=== PATIENT | male | born 1985 | race African-American/Black ===

== ENCOUNTER 2019-02-05 20:52 | Emergency (ER) | payer SELFPAY ==
--- NOTE | 2019-02-05 21:07 | EDM.PDOC ---
ED HPI GENERAL MEDICAL PROBLEM - General Chief Complaint: General Stated Complaint: MEDICAL CLEARANCE Time Seen by Provider: 02/05/19 20:55 Source of Information: Reports: Patient, Police - History of Present Illness INITIAL COMMENTS - FREE TEXT/NARRATIVE: 33 YO WM presents to ER by police due to alcohol intoxication and request for medical clearance. Pt reports alcohol consumption tonight but denies any trauma or past medical conditions. Pt is alert and oriented and without complaints. Police brought patient due to policy for medical clearance before transferring to [facility]. Pt without any signs of trauma. Pt was found behind the wheel of his automobile sleeping but arousable. Pt GCS-15 with no ataxia and mild slurred speech. Pt denies chest pain, headache, no shortness of breath, no nausea/ vomiting. Onset: Today Location: Reports: Generalized Improves with: Reports: None Worsens with: Reports: None Associated Symptoms: Reports: No Other Symptoms ED ROS GENERAL - Review of Systems Review Of Systems: See Below Constitutional: Reports: No Symptoms HEENT: Reports: No Symptoms Respiratory: Reports: No Symptoms Cardiovascular: Reports: No Symptoms Endocrine: Reports: No Symptoms GI/Abdominal: Reports: No Symptoms : Reports: No Symptoms Musculoskeletal: Reports: No Symptoms Skin: Reports: No Symptoms Neurological: Reports: No Symptoms Psychiatric: Reports: No Symptoms Hematologic/Lymphatic: Reports: No Symptoms Immunologic: Reports: No Symptoms ED EXAM, GENERAL - Physical Exam Exam: See Below Exam Limited By: No Limitations General Appearance: Alert, WD/WN, No Apparent Distress Eye Exam: Bilateral Eye: EOMI, PERRL Nose: Normal Inspection, Normal Mucosa, No Blood Throat/Mouth: Normal Inspection, Normal Lips, Normal Teeth, Normal Gums, Normal Oropharynx, Normal Voice, No Airway Compromise Head: Atraumatic, Normocephalic Neck: Normal Inspection, Supple, Non-Tender, Full Range of Motion Respiratory/Chest: No Respiratory Distress, Lungs Clear, Normal Breath Sounds, No Accessory Muscle Use, Chest Non-Tender Cardiovascular: Normal Peripheral Pulses, Regular Rate, Rhythm, No Edema, No Gallop, No JVD, No Murmur, No Rub GI/Abdominal: Normal Bowel Sounds, Soft, Non-Tender, No Organomegaly, No Distention, No Abnormal Bruit, No Mass Back Exam: Normal Inspection, Full Range of Motion, NT Extremities: Normal Inspection, Normal Range of Motion, Non-Tender, Normal Capillary Refill, No Pedal Edema Neurological: Alert, Oriented, CN II-XII Intact, Normal Cognition, Normal Gait, Normal Reflexes, No Motor/Sensory Deficits Psychiatric: Normal Affect, Normal Mood Skin Exam: Warm, Dry, Intact, Normal Color, No Rash Lymphatic: No Adenopathy Departure - Departure Time of Disposition: 21:09 Disposition: Home, Self-Care 01 Condition: Fair Clinical Impression: Medical clearance for incarceration Alcohol intoxication Qualifiers: Complication of substance-induced condition: uncomplicated Qualified Code(s): F10.920 - Alcohol use, unspecified with intoxication, uncomplicated - Discharge Information Instructions: Alcohol Intoxication, [id number] Forms: ED Department Discharge Additional Instructions: 1. discharged to police custody 2. Pt is medically cleared for county correction 3. decrease alcohol consumption 4. return to ER for worsening symptoms - Assessment/Plan Assessment:: 1. Alcohol intoxication Plan: 1. discharged to police custody 2. Pt is medically cleared for county correction 3. decrease alcohol consumption 4. return to ER for worsening symptoms
== END 2019-02-05 21:20 | disposition home or self-care (01) ==
LOC: KA.ED 20:52
DX: F10.129 Alcohol abuse with intoxication, unspecified (principal); Z02.89 Encounter for other administrative examinations
CPT/HCPCS: 99283